=== PATIENT | male | born 1995 | race Two or more races ===

== ENCOUNTER 2019-09-21 17:13 | Emergency (ER) | payer OTHER ==
[~2019-09-21] VITALS: Ht 182.9 cm; Wt 114.0 kg
[2019-09-21 17:16] VITALS: BP 160/72
[2019-09-21] MEDS ORDERED: LIDOCAINE-MPF 1%, 5ML ONE ×2 (17:32→17:53)
[2019-09-21] MEDS ORDERED: DIPH,PERTUSS(ACELL),TET VAC/PF 0.5 ML IM-VACC ONE ×2 (17:53→18:00)
[2019-09-21] MEDS ORDERED: LIDOCAINE 1%-EPI 1:100K, 20ML ONE (17:58)
[2019-09-21] MEDS ORDERED: LIDOCAINE 1%, 10ML INFIL ONE (18:00)
--- NOTE | 2019-09-21 18:12 | NUR ---
1% W/OUT LIDO WITHOUT GREAT IN CONTROLLING PAIN. HOWEVER BLEEDING STIL SUBSTANTIAL DESPITE PRESSURE DRESSING. PROVIDER INJECTED LIDO 1% WITH EPI THEN PRESSURE HELD BY EMT FOR 10 MINUTES XRAY OBTAINED AT 1810 TDAP UPDATED PER EMAR
[2019-09-21] MEDS ORDERED: HYDROcodone/APAP 5/325 TABLET ONE (18:25)
[2019-09-21] MEDS ORDERED: NEOSPORIN OINT. PKT 1 PACKET TP ONE (18:30)
[2019-09-21] MEDS ORDERED: HYDROcodone/APAP 5/325 TABLET PO ONE (18:30)
[2019-09-21] MEDS ORDERED: LIDOCAINE 1%-EPI 1:100K, 20ML INFIL ONE (18:30)
--- NOTE | 2019-09-21 19:08 | NUR ---
bleeding continues/as well as pain from laceration Pressure applied by saline bag (even/continual pressure)
== END 2019-09-21 20:22 | disposition home or self-care (01) ==
LOC: ED 17:51
DX: S61.012A Laceration without foreign body of left thumb without damage to nail, initial encounter (principal); W45.8XXA Other foreign body or object entering through skin, initial encounter; Y93.89 Activity, other specified; Y92.009 Unspecified place in unspecified non-institutional (private) residence as the place of occurrence of the external cause; Y99.8 Other external cause status
CPT/HCPCS: 12041; 73130; 90471; 90715; 99284; J3490

== ENCOUNTER 2019-10-02 10:17 | Emergency (ER) | payer OTHER ==
[~2019-10-02] VITALS: Ht 180.3 cm; Wt 113.4 kg
[2019-10-02 10:19] VITALS: BP 143/87
--- NOTE | 2019-10-02 10:27 | NUR ---
PT HERE FOR SUTURE REMOVAL. PT HAD INITIAL INJURY CUTTING MEAT 10 DAYS AGO, 6 SUTURES TO LEFT HAND/THUMB. PA AT BEDSIDE FOR SUTURE REMOVAL.
--- NOTE | 2019-10-02 10:36 | NUR ---
Patient/Caregiver given discharge instructions and they have confirmed that they understand the instructions. Patient ambulatory with steady gait.
== END 2019-10-02 10:38 | disposition home or self-care (01) ==
LOC: ED 10:27
DX: S61.419D Laceration without foreign body of unspecified hand, subsequent encounter (principal); F17.200 Nicotine dependence, unspecified, uncomplicated; X58.XXXD Exposure to other specified factors, subsequent encounter
CPT/HCPCS: 99282